=== PATIENT | female | born 1995 | race American Indian/Alaskan Native ===

== ENCOUNTER 2019-02-26 06:46 | Emergency (ER) | payer OTHER ==
[2019-02-26 07:09] LABS: Basophils % (Auto) 0.7 % (0.0-1.8); Eosinophils % (Auto) 0.6 % (0.0-4.3); Hematocrit 39.5 % (30.3-42.9); Hemoglobin 13.3 gm/dl (10.1-14.3); Lymphocytes # (Auto) 1.4 K/mm3 (1.2-5.4); Lymphocytes % (Auto) 21.7 % (13.4-35.0); Mean Corpuscular HGB Conc 34 % (30-34); Mean Corpuscular Volume 91 fl (79-97); Monocytes # (Auto) 0.4 K/mm3 (0.0-0.8); Monocytes % (Auto) 5.6 % (0.0-7.3); Platelet Count 228 K/mm3 (140-440); Red Blood Count 4.35 M/mm3 (3.65-5.03); Red Cell Distribution Width 13.3 % (13.2-15.2)
[2019-02-26 07:26] LABS: Albumin 4.3 g/dL (3.9-5); BUN/Creatinine Ratio 11; Blood Urea Nitrogen 8 mg/dL (7-17); Calcium 9.4 mg/dL (8.4-10.2); Hemolysis Index 10
[2019-02-26 07:28] LABS: Alanine Aminotransferase < 5 units/L (7-56)
[2019-02-26] MEDS ORDERED: ZOFRAN IV ONE ×2 (08:25→10:14)
[2019-02-26] MEDS ORDERED: TORADOL IV ONE (08:25)
[2019-02-26] MEDS ORDERED: NACL 0.9% 1000 ML 1,000 ML IV ONE (08:25)
[2019-02-26 08:39] LABS: Bilirubin,Urine NEG (Negative); Color,Urine Amber (Yellow)
[2019-02-26 08:40] LABS: Bacteria,Urine 1+ /HPF (Negative); Blood,Urine NEG (Negative); Mucus,Urine 3+ /HPF
[2019-02-26] MEDS ORDERED: K-DUR PO ONE ×4 (08:47→13:34)
--- NOTE | 2019-02-26 08:47 | Emergency Department Report ---
ED N/V/D HPI - General Chief complaint: Abdominal Pain Stated complaint: VOMITING Time Seen by Provider: 02/26/19 08:22 Source: patient Mode of arrival: Ambulatory Limitations: No Limitations - History of Present Illness Initial comments: 24-year-old female with past medical history asthma no previous surgical history presents also complaining of nausea, vomiting, diarrhea 3 days. Patient is unable to tolerate food or liquids. She states she is having bilious vomiting. She complains of generalized cramping abdominal pain. Patient denies recent travel, sick contacts, recent antibiotic use, fever, hematochezia, hematuria, hematemesis, or melena. - Related Data Previous Rx's Medication Instructions Recorded Last Taken Type Famotidine [Pepcid] 20 mg PO BID #20 tablet 02/26/19 Unknown Rx Ondansetron [Zofran Odt] 1 - 2 tab PO Q8HR PRN #20 02/26/19 Unknown Rx tab.rapdis Promethazine [Phenergan] 25 mg ME Q6HR PRN #14 supp.rect 02/26/19 Unknown Rx traMADol [Ultram 50 MG tab] 50 mg PO Q6HR PRN #14 tablet 02/26/19 Unknown Rx Allergies Allergy/AdvReac Type Severity Reaction Status Date / Time No Known Allergies Allergy Unverified 02/26/19 06:53 ED Review of Systems ROS: Stated complaint: VOMITING Other details as noted in HPI Comment: All other systems reviewed and negative ED Past Medical Hx - Past Medical History Previous Medical History?: Yes Hx Asthma: Yes - Surgical History Past Surgical History?: No - Social History Smoking Status: Current Some Day Smoker Substance Use Type: Alcohol, Marijuana - Medications Home Medications: Home Medications Medication Instructions Recorded Confirmed Last Taken Type Famotidine [Pepcid] 20 mg PO BID #20 tablet 02/26/19 Unknown Rx Ondansetron [Zofran Odt] 1 - 2 tab PO Q8HR PRN #20 02/26/19 Unknown Rx tab.rapdis Promethazine [Phenergan] 25 mg ME Q6HR PRN #14 supp.rect 02/26/19 Unknown Rx traMADol [Ultram 50 MG tab] 50 mg PO Q6HR PRN #14 tablet 02/26/19 Unknown Rx ED Physical Exam - General Limitations: No Limitations - Other Other exam information: Gen.: No acute distress Head: Atraumatic Eyes: Normal appearance ENT: Dry mucous membranes Neck: Normal appearance, no posterior midline tenderness, no meningismus Chest: Clear to auscultation bilaterally Cardiovascular: Tachycardic regular rhythm Abdomen: Normal appearance, soft, mild generalized tenderness, no rebound or guarding, normal bowel sounds Back: Normal appearance, nontender Extremity: Full range of motion, normal appearance Neuro: Alert oriented 3, clear speech, no focal motor or sensory deficit Psychiatric: Appropriate Skin: No rash ED Course Vital Signs 02/26/19 02/26/19 06:52 12:25 Temperature 98.8 F 98.0 F Pulse Rate 113 H 89 Respiratory 16 18 Rate Blood Pressure 117/78 Blood Pressure 130/82 [Left] O2 Sat by Pulse 96 100 Oximetry ED Medical Decision Making - Lab Data Result diagrams: 02/26/19 06:57 02/26/19 06:57 Lab Results 02/26/19 02/26/19 02/26/19 Range/Units 06:57 06:57 06:57 WBC 6.5 (4.5-11.0) K/mm3 RBC 4.35 (3.65-5.03) M/mm3 Hgb 13.3 (10.1-14.3) gm/dl Hct 39.5 (30.3-42.9) % MCV 91 (79-97) fl MCH 31 (28-32) pg MCHC 34 (30-34) % RDW 13.3 (13.2-15.2) % Plt Count 228 (140-440) K/mm3 Lymph % (Auto) 21.7 (13.4-35.0) % [place] % (Auto) 5.6 (0.0-7.3) % Eos % (Auto) 0.6 (0.0-4.3) % Baso % (Auto) 0.7 (0.0-1.8) % Lymph # 1.4 (1.2-5.4) K/mm3 [place]yler # 0.4 (0.0-0.8) K/mm3 Eos # 0.0 (0.0-0.4) K/mm3 Baso # 0.0 (0.0-0.1) K/mm3 Seg Neutrophils % 71.4 H (40.0-70.0) % Seg Neutrophils # 4.7 (1.8-7.7) K/mm3 Sodium 144 (137-145) mmol/L Potassium 3.3 L (3.6-5.0) mmol/L Chloride 102.0 (98-107) mmol/L Carbon Dioxide 26 (22-30) mmol/L Anion Gap 19 mmol/L BUN 8 (7-17) mg/dL Creatinine 0.7 (0.7-1.2) mg/dL Estimated GFR > 60 ml/min BUN/Creatinine Ratio 11 % Glucose 106 H (65-100) mg/dL Calcium 9.4 (8.4-10.2) mg/dL Total Bilirubin 0.80 (0.1-1.2) mg/dL AST 14 (5-40) units/L ALT < 5 L (7-56) units/L Alkaline Phosphatase 52 (35-129) units/L Total Protein 7.6 (6.3-8.2) g/dL Albumin 4.3 (3.9-5) g/dL Albumin/Globulin Ratio 1.3 % Lipase 19 (13-60) units/L HCG, Qual Negative (Negative) Urine Color (Yellow) Urine Turbidity (Clear) Urine pH (5.0-7.0) Ur Specific [place] (1.003-1.030) Urine Protein (Negative) mg/dL Urine Glucose (UA) (Negative) mg/dL Urine Ketones (Negative) mg/dL Urine Blood (Negative) Urine Nitrite (Negative) Urine Bilirubin (Negative) Urine Urobilinogen (<2.0) mg/dL Ur Leukocyte Esterase (Negative) Urine WBC (Auto) (0.0-6.0) /HPF Urine RBC (Auto) (0.0-6.0) /HPF U Epithel Cells (Auto) (0-13.0) /HPF Urine Bacteria (Auto) (Negative) /HPF Urine Mucus /HPF 02/26/19 Range/Units 07:45 WBC (4.5-11.0) K/mm3 RBC (3.65-5.03) M/mm3 Hgb (10.1-14.3) gm/dl Hct (30.3-42.9) % MCV (79-97) fl MCH (28-32) pg MCHC (30-34) % RDW (13.2-15.2) % Plt Count (140-440) K/mm3 Lymph % (Auto) (13.4-35.0) % [place] % (Auto) (0.0-7.3) % Eos % (Auto) (0.0-4.3) % Baso % (Auto) (0.0-1.8) % Lymph # (1.2-5.4) K/mm3 [place] # (0.0-0.8) K/mm3 Eos # (0.0-0.4) K/mm3 Baso # (0.0-0.1) K/mm3 Seg Neutrophils % (40.0-70.0) % Seg Neutrophils # (1.8-7.7) K/mm3 Sodium (137-145) mmol/L Potassium (3.6-5.0) mmol/L Chloride (98-107) mmol/L Carbon Dioxide (22-30) mmol/L Anion Gap mmol/L BUN (7-17) mg/dL Creatinine (0.7-1.2) mg/dL Estimated GFR ml/min BUN/Creatinine Ratio % Glucose (65-100) mg/dL Calcium (8.4-10.2) mg/dL Total Bilirubin (0.1-1.2) mg/dL AST (5-40) units/L ALT (7-56) units/L Alkaline Phosphatase (35-129) units/L Total Protein (6.3-8.2) g/dL Albumin (3.9-5) g/dL Albumin/Globulin Ratio % Lipase (13-60) units/L HCG, Qual (Negative) Urine Color [place] (Yellow) Urine Turbidity Slightly-cloudy (Clear) Urine pH 5.0 (5.0-7.0) Ur Specific [place] 1.031 H (1.003-1.030) Urine Protein 30 mg/dl (Negative) mg/dL Urine Glucose (UA) Neg (Negative) mg/dL Urine Ketones 80 (Negative) mg/dL Urine Blood Neg (Negative) Urine Nitrite Neg (Negative) Urine Bilirubin Neg (Negative) Urine Urobilinogen 2.0 (<2.0) mg/dL Ur Leukocyte Esterase Neg (Negative) Urine WBC (Auto) 5.0 (0.0-6.0) /HPF Urine RBC (Auto) 3.0 (0.0-6.0) /HPF U Epithel Cells (Auto) 2.0 (0-13.0) /HPF Urine Bacteria (Auto) 1+ (Negative) /HPF Urine Mucus 3+ /HPF - Medical Decision Making Patient's symptoms improving after Zofran, Benadryl, Reglan, a liter of normal saline, and 1 L D5NS. Patient tolerating by mouth. Patient Able to tolerate by mouth potassium pills. Labs unremarkable. Urine suggests dehydration without signs of infection. Patient be discharged home with symptomatic treatment for gastroenteritis. tachycardia improved with iv hydration - Differential Diagnosis gastroenteritis, appendicitis, UTI, dehydration Critical Care Time: No Critical care attestation.: If time is entered above; I have spent that time in minutes in the direct care of this critically ill patient, excluding procedure time. ED Disposition Clinical Impression: Gastroenteritis, Hypokalemia Disposition: TO HOME OR SELFCARE Is pt being admited?: No Condition: Stable Instructions: Gastroenteritis (ED), Hypokalemia (ED) Additional Instructions: Take the medication as prescribed. Follow-up with your doctor or with the doctor/clinic provided. Return if symptoms worsen as indicated by your discharge instructions. Prescriptions: Famotidine [Pepcid] 20 mg PO BID #20 tablet Promethazine [Phenergan] 25 mg ME Q6HR PRN #14 supp.rect PRN Reason: Nausea And Vomiting traMADol [Ultram 50 MG tab] 50 mg PO Q6HR PRN #14 tablet PRN Reason: Pain Ondansetron [Zofran Odt] 1 - 2 tab PO Q8HR PRN #20 tab.rapdis PRN Reason: Nausea And Vomiting Referrals: [facility] [Provider Group] - 3-5 Days CARLA PIKE MD [Staff Physician] - 3-5 Days Time of Disposition: 13:21
[2019-02-26] MEDS ORDERED: BENADRYL IV ONE (10:14)
[2019-02-26] MEDS ORDERED: REGLAN IV ONE (10:14)
[2019-02-26] MEDS ORDERED: D5NS 1,000 ML IV SCH (11:00)
[2019-02-26] MEDS ORDERED: POTASSIUM CHLORIDE PO ONE (12:16)
[2019-02-26 12:26] VITALS: BP 130/82
== END 2019-02-26 13:53 | disposition home or self-care (01) ==
LOC: ED 06:46
DX: K52.9 Noninfective gastroenteritis and colitis, unspecified (principal); E87.6 Hypokalemia; J45.909 Unspecified asthma, uncomplicated; F17.200 Nicotine dependence, unspecified, uncomplicated
CPT/HCPCS: 36415; 80053; 81001; 83690; 84703; 85025; 96361; 96374; 96375; 96376; 99283; J1200; J1885; J2405; J2765; J7030; J7042

== ENCOUNTER 2019-03-26 08:36 | Emergency (ER) | payer OTHER ==
[2019-03-26] MEDS ORDERED: FAMOTIDINE 20 MG/2 ML INJ IV ONE (10:03)
[2019-03-26] MEDS ORDERED: ONDANSETRON 4 MG/2 ML INJ IV ONE (10:03)
[2019-03-26] MEDS ORDERED: MORPHINE 4 MG/1 ML INJ IV ONE (10:03)
[2019-03-26] MEDS ORDERED: SODIUM CHLORIDE 0.9% 1000 ML 1,000 ML IV ONE (10:03)
--- NOTE | 2019-03-26 10:23 | Emergency Department Report ---
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 STomach cramping severe. Vomited 8 times this morning. Smokes marijuana every day. No fever. MD Complaint: abdominal pain -: Gradual, month(s) (1) Location: diffuse Radiation: none Severity: moderate Severity scale (0 -10): 8 Quality: cramping Consistency: intermittent Improves With: nothing Worsens With: nothing Associated Symptoms: nausea, vomiting - Related Data Previous Rx's Medication Instructions Recorded Last Taken Type Famotidine [Pepcid] 20 mg PO BID #20 tablet 02/26/19 Unknown Rx Ondansetron [Zofran Odt] 1 - 2 tab PO Q8HR PRN #20 02/26/19 Unknown Rx tab.rapdis Promethazine [Phenergan] 25 mg HI Q6HR PRN #14 supp.rect 02/26/19 Unknown Rx traMADol [Ultram 50 MG tab] 50 mg PO Q6HR PRN #14 tablet 02/26/19 Unknown Rx Naproxen 500 mg PO BID PRN #30 tablet 03/06/19 Unknown Rx Nitrofurantoin [place]/M-Cryst 100 mg PO BID 7 Days #14 capsule 03/06/19 Unknown Rx [Macrobid CAP] Ondansetron [Zofran Odt] 4 mg PO Q8HR PRN #12 tab.rapdis 03/06/19 Unknown Rx Promethazine [Phenergan] 25 mg PO Q6HR PRN #10 tab 03/26/19 Unknown Rx Allergies Allergy/AdvReac Type Severity Reaction Status Date / Time No Known Allergies Allergy Unverified 02/26/19 06:53 ED Review of Systems ROS: Stated complaint: VOMITING/DIARRHEA Other details as noted in HPI Comment: All other systems reviewed and negative Constitutional: denies: fever, malaise Gastrointestinal: abdominal pain, nausea, vomiting ED Past Medical Hx - Past Medical History Previous Medical History?: Yes Hx Asthma: Yes - Surgical History Past Surgical History?: No - Social History Smoking Status: Current Every Day Smoker Substance Use Type: Alcohol, Marijuana - Medications Home Medications: Home Medications Medication Instructions Recorded Confirmed Last Taken Type Famotidine [Pepcid] 20 mg PO BID #20 tablet 02/26/19 Unknown Rx Ondansetron [Zofran Odt] 1 - 2 tab PO Q8HR PRN #20 02/26/19 Unknown Rx tab.rapdis Promethazine [Phenergan] 25 mg [place] Q6HR PRN #14 supp.rect 02/26/19 Unknown Rx traMADol [Ultram 50 MG tab] 50 mg PO Q6HR PRN #14 tablet 02/26/19 Unknown Rx Naproxen 500 mg PO BID PRN #30 tablet 03/06/19 Unknown Rx Nitrofurantoin [place]/M-Cryst 100 mg PO BID 7 Days #14 capsule 03/06/19 Unknown Rx [Macrobid CAP] Ondansetron [Zofran Odt] 4 mg PO Q8HR PRN #12 tab.rapdis 03/06/19 Unknown Rx Promethazine [Phenergan] 25 mg PO Q6HR PRN #10 tab 03/26/19 Unknown Rx ED Physical Exam - General Limitations: No Limitations General appearance: alert, in no apparent distress - Head Head exam: Present: atraumatic, normocephalic - Eye Eye exam: Present: normal appearance - ENT ENT exam: Present: mucous membranes moist - Neck Neck exam: Present: normal inspection, full ROM - Respiratory Respiratory exam: Present: normal lung sounds bilaterally. Absent: respiratory distress, wheezes, rales, rhonchi - Cardiovascular Cardiovascular Exam: Present: regular rate, normal rhythm, normal heart sounds. Absent: systolic murmur, diastolic murmur, rubs, gallop - GI/Abdominal GI/Abdominal exam: Present: soft, normal bowel sounds. Absent: distended, tenderness, guarding, rebound - Extremities Exam Extremities exam: Present: normal inspection - Back Exam Back exam: Present: normal inspection - Neurological Exam Neurological exam: Present: alert, oriented X3 - Psychiatric Psychiatric exam: Present: normal affect, normal mood - Skin Skin exam: Present: warm, dry, intact, normal color. Absent: rash ED Course Vital Signs 03/26/19 08:49 Temperature 97.9 F Pulse Rate 72 Respiratory 20 Rate Blood Pressure 103/67 O2 Sat by Pulse 96 Oximetry ED Medical Decision Making - Medical Decision Making Kevyn presents with cannabinoid hyperemesis syndrome. He received IV fluid antiemetic analgesia H2-terese. Strongly recommended cessation of marijuana use. Prescribe promethazine. Critical care attestation.: If time is entered above; I have spent that time in minutes in the direct care of this critically ill patient, excluding procedure time. ED Disposition Clinical Impression: Cannabinoid hyperemesis syndrome Disposition: DC-01 TO HOME OR SELFCARE Is pt being admited?: No Does the pt Need Aspirin: No Condition: Stable Additional Instructions: Please stop smoking marijuana. You will continue to have severe pain if you do not stop using marijuana Prescriptions: Promethazine [Phenergan] 25 mg PO Q6HR PRN #10 tab PRN Reason: Nausea Referrals: [facility] [Outside] - 3-5 Days Forms: Work/School Release Form(ED)
[2019-03-26] MEDS ORDERED: ACETAMINOPHEN 500 MG TAB PO ONE (11:17)
[2019-03-26] MEDS ORDERED: ALUM-MAG HYDROXIDE-SIMETHICONE 200-200-20MG/5ML ORAL LIQD 30 ML PO ONE (11:17)
[2019-03-26 13:01] VITALS: BP 109/55
== END 2019-03-26 12:42 | disposition home or self-care (01) ==
LOC: ED 08:36
DX: F12.188 Cannabis abuse with other cannabis-induced disorder (principal); R11.2 Nausea with vomiting, unspecified; J45.909 Unspecified asthma, uncomplicated; F17.200 Nicotine dependence, unspecified, uncomplicated; F12.10 Cannabis abuse, uncomplicated
CPT/HCPCS: 96361; 96374; 96375; 99283; J2270; J2405; J7030